=== PATIENT | female | born 2000 | race Caucasian/White ===

== ENCOUNTER 2019-06-29 15:47 | Emergency (ER) | payer OTHER ==
[~2019-06-29] VITALS: Ht 167.7 cm; Wt 64.8 kg
[~2019-06-29 15:47] MED LIST: CYCL10TA9 PO
--- NOTE | 2019-06-29 16:08 | ED Pediatric Illness ---
HPI-Pediatric Illness General Chief Complaint: Exposure Stated Complaint: POSS MOLD EXPOSURE/NAUSEA/HEADACHES Nursing Triage Note: Ambulated to triage. States that she needs to have documentation of mold exposure from her apartment. States that someone else in the apartment building has a child who had a seizure after finding black mold in apartment. Landlord refuses to acknowledge mold. C/O nausea daily with vomiting every morning. Unable to eat times 2 weeks. Tired. A few weeks ago had a tightness in her throat after coming in to apartment Source: patient Exam Limitations: no limitations History of Present Illness Date Seen by Provider: Jun 29, 2019 Time Seen by Provider: 16:06 Initial Comments to ER with headaches nausea for about a month, hasn't been able to eat anything for 2 weeks. She relates this to black mold exposure in her apartment and states she is just here for documentation purposes. Timing/Duration: 4-6 hours Severity: moderate Presenting Symptoms: vomiting, headache Allergies and Home Medications Allergies Coded Allergies: No Known Drug Allergies (Unverified , 06/03/18) Home Medications Cyclobenzaprine HCl 10 Mg Tablet, 10 MG PO Q8H PRN for SPASMS Prescribed by: SKYLAR LEES on 06/03/182022 Patient Home Medication List Home Medication List Reviewed: Yes Review of Systems Review of Systems Constitutional: see HPI EENTM: see HPI Respiratory: no symptoms reported Cardiovascular: no symptoms reported Genitourinary: no symptoms reported LMP: May 28, 2019 Musculoskeletal: no symptoms reported Skin: no symptoms reported Psychiatric/Neurological: Headache Endocrine: No Symptoms Reported PMH-Pediatrics Recent Foreign Travel: No Contact w/other who traveled: No Recent Infectious Disease Expo: No Seasonal Allergies: No Musculoskeletal Disorders: Back Injury Physical Exam-Pediatric Physical Exam Vital Signs - First Documented 06/29/19 15:49 Temp 36.6 Pulse 64 Resp 16 B/P (MAP) 130/71 Capillary Refill : Height, Weight, BMI Height: '" Weight: lbs. oz. kg; 23.00 BMI Method: General Appearance: no acute distress, see HPI, active HENT: head inspection normal, fontanelle closed/normal, PERRL, TMs normal Neck: non-tender, full range of motion Respiratory: lungs clear, normal breath sounds, no respiratory distress, no accessory muscle use Cardiovascular: regular rate, rhythm, no murmur Gastrointestinal: normal bowel sounds, non tender, soft Extremities: normal range of motion, non-tender Neurologic/Psychiatric: alert, normal mood/affect, oriented x 3 Skin: normal color, warm/dry Progress/Results/Core Measures Results/Orders Lab Results Laboratory Tests Test 06/29/19 16:13 06/29/19 16:52 Range/Units White Blood Count 8.8 4.3-11.0 10^3/uL Red Blood Count 4.58 4.35-5.85 10^6/uL Hemoglobin 13.8 11.5-16.0 G/DL Hematocrit 40 35-52 % Mean Corpuscular Volume 88 80-99 FL Mean Corpuscular Hemoglobin 30 25-34 PG Mean Corpuscular Hemoglobin Concent 34 32-36 G/DL Red Cell Distribution Width 13.1 10.0-14.5 % Platelet Count 277 130-400 10^3/uL Mean Platelet Volume 10.1 7.4-10.4 FL Neutrophils (%) (Auto) 69 42-75 % Lymphocytes (%) (Auto) 19 12-44 % Monocytes (%) (Auto) 10 0-12 % Eosinophils (%) (Auto) 2 0-10 % Basophils (%) (Auto) 0 0-10 % Neutrophils # (Auto) 6.1 1.8-7.8 X 10^3 Lymphocytes # (Auto) 1.6 1.0-4.0 X 10^3 Monocytes # (Auto) 0.8 0.0-1.0 X 10^3 Eosinophils # (Auto) 0.2 0.0-0.3 10^3/uL Basophils # (Auto) 0.0 0.0-0.1 10^3/uL Sodium Level 140 135-145 MMOL/L Potassium Level 3.9 3.6-5.0 MMOL/L Chloride Level 108 H 98-107 MMOL/L Carbon Dioxide Level 22 21-32 MMOL/L Anion Gap 10 5-14 MMOL/L Blood Urea Nitrogen 15 7-18 MG/DL Creatinine 0.82 0.60-1.30 MG/DL Estimat Glomerular Filtration Rate > 60 BUN/Creatinine Ratio 18 Glucose Level 131 H 70-105 MG/DL Calcium Level 9.5 8.5-10.1 MG/DL Corrected Calcium 8.5-10.1 MG/DL Total Bilirubin 0.3 0.1-1.0 MG/DL Aspartate Amino Transf (AST/SGOT) 13 5-34 U/L Alanine Aminotransferase (ALT/SGPT) 7 0-55 U/L Alkaline Phosphatase 89 40-136 U/L Total Protein 7.6 6.4-8.2 GM/DL Albumin 4.8 H 3.2-4.5 GM/DL Serum Alcohol < 10 <10 MG/DL Urine Color YELLOW Urine Clarity CLEAR Urine pH 6.5 5-9 Urine Specific [place] 1.015 L 1.016-1.022 Urine Protein 1+ H NEGATIVE Urine Glucose (UA) NEGATIVE NEGATIVE Urine Ketones NEGATIVE NEGATIVE Urine Nitrite NEGATIVE NEGATIVE Urine Bilirubin NEGATIVE NEGATIVE Urine Urobilinogen NORMAL NORMAL MG/DL Urine Leukocyte Esterase 2+ H NEGATIVE Urine RBC (Auto) NEGATIVE NEGATIVE Urine RBC NONE /HPF Urine WBC 5-10 H /HPF Urine Squamous Epithelial Cells 2-5 /HPF Urine Crystals NONE /LPF Urine Bacteria LARGE H /HPF Urine Casts NONE /LPF Urine Hyaline Casts RARE /LPF Urine Mucus SMALL H /LPF Urine Culture Indicated YES My Orders Orders - MORENO FLEMING APRN Alcohol (06/29/19 16:04) Cbc With Automated Diff (06/29/19 16:04) Comprehensive Metabolic Panel (06/29/19 16:04) Ua Culture If Indicated (06/29/19 16:04) Hcg,Qualitative Urine (06/29/19 16:04) Drug Screen Stat (Urine) (06/29/19 16:04) Urine Culture (06/29/19 16:52) Vital Signs/I&O 06/29/19 15:49 Temp 36.6 Pulse 64 Resp 16 B/P (MAP) 130/71 Departure Impression Primary Impression: Urinary tract infection Qualified Codes: N30.00 - Acute cystitis without hematuria Disposition: HOME, SELF-CARE Condition: Stable Departure-Patient Inst. Decision time for Depature: 16:08 Referrals: NO,LOCAL PHYSICIAN (PCP/Family) Primary Care Physician Patient Instructions: Urinary Tract Infection, Adult (DC) Add. Discharge Instructions: 1. Nausea medication as needed 2. Antibiotic as directed 3. Follow-up with your regular doctor for any concerns. Return to ER for any worsening. All discharge instructions reviewed with patient and/or family. Voiced understanding. Scripts Sulfamethoxazole/Trimethoprim (Bactrim Ds Tablet) 1 Each Tablet 1 EACH PO BID, #10 TAB Prov: MORENO FLEMING APRN 06/29/19 Ondansetron (Ondansetron Odt) 4 Mg Tab.rapdis 8 MG PO Q6H PRN for NAUSEA/VOMITING, #8 TAB 0 Refills Prov: MORENO FLEMING APRN 06/29/19 MORENO FLEMING APRN Jun 29, 2019 16:08
[2019-06-29 16:20] LABS: BASOPHILS % (AUTO) 0 % (0-10); EOSINOPHILS # (AUTO) 0.2 10^3/uL (0.0-0.3); EOSINOPHILS % (AUTO) 2 % (0-10); HEMATOCRIT 40 % (35-52); HEMOGLOBIN 13.8 G/DL (11.5-16.0); LYMPHOCYTES # (AUTO) 1.6 X 10^3 (1.0-4.0); LYMPHOCYTES % (AUTO) 19 % (12-44); MEAN CORPUSCULAR HEMOGLOBIN 30 PG (25-34); MEAN CORPUSCULAR HGB CONC 34 G/DL (32-36); MEAN CORPUSCULAR VOLUME 88 FL (80-99); MEAN PLATELET VOLUME 10.1 FL (7.4-10.4); MONOCYTES # (AUTO) 0.8 X 10^3 (0.0-1.0); MONOCYTES % (AUTO) 10 % (0-12); NEUTROPHILS # (AUTO) 6.1 X 10^3 (1.8-7.8); NEUTROPHILS % (AUTO) 69 % (42-75); PLATELET COUNT 277 10^3/uL (130-400); RED CELL DISTRIBUTION WIDTH 13.1 % (10.0-14.5); WHITE BLOOD COUNT 8.8 10^3/uL (4.3-11.0)
[2019-06-29 16:42] LABS: ALANINE AMINOTRANSFERASE 7 U/L (0-55); ALBUMIN 4.8 GM/DL (3.2-4.5); ALKALINE PHOSPHATASE 89 U/L (40-136); BILIRUBIN,TOTAL 0.3 MG/DL (0.1-1.0); BUN/CREATININE RATIO 18; CALCIUM 9.5 MG/DL (8.5-10.1); CARBON DIOXIDE 22 MMOL/L (21-32); CHLORIDE 108 MMOL/L (98-107); CREATININE SERUM 0.82 MG/DL (0.60-1.30); GFR ESTIMATED > 60; GLUCOSE 131 MG/DL (70-105); POTASSIUM 3.9 MMOL/L (3.6-5.0); SODIUM 140 MMOL/L (135-145); TOTAL PROTEIN 7.6 GM/DL (6.4-8.2)
[2019-06-29 17:03] LABS: BILIRUBIN,URINE NEGATIVE (NEGATIVE); CLARITY,URINE CLEAR; COLOR,URINE YELLOW; GLUCOSE, URINE (UA) NEGATIVE (NEGATIVE); KETONES,URINE NEGATIVE (NEGATIVE); LEUKOCYTE ESTERASE ,URINE 2+ (NEGATIVE); NITRITE,URINE NEGATIVE (NEGATIVE); PH,URINE 6.5 (5-9); PROTEIN,URINE 1+ (NEGATIVE); UROBILINOGEN,URINE NORMAL (NORMAL)
[2019-06-29 17:18] LABS: BACTERIA,URINE LARGE /HPF; HYALINE CASTS, URINE RARE /LPF
[2019-06-29 17:23] LABS: AMPHETAMINE SCREEN, URINE NEGATIVE (NEGATIVE); BARBITURATE SCREEN URINE NEGATIVE (NEGATIVE); BENZODIAZEPINES SCREEN URINE NEGATIVE (NEGATIVE); CANNABINOID SCREEN, URINE NEGATIVE (NEGATIVE); COCAINE SCREEN URINE NEGATIVE (NEGATIVE); HCG,QUALITATIVE URINE NEGATIVE (NEGATIVE); METHADONE STAT NEGATIVE (NEGATIVE); METHAMPHETAMINE SCREEN URINE S NEGATIVE (NEGATIVE); OPIATE SCREEN URINE NEGATIVE (NEGATIVE); OXYCODONE STAT NEGATIVE (NEGATIVE); PROPOXYPHENE STAT NEGATIVE (NEGATIVE); TRICYCLIC ANTIDEPRESSANTS SCRE NEGATIVE (NEGATIVE)
[2019-06-29] MEDS ORDERED: ONDA4TAB11 PO (17:23)
[2019-06-29] MEDS ORDERED: SULF1TAB35 PO (17:23)
== END 2019-06-29 17:31 | disposition home or self-care (01) ==
LOC: EDUNIT# 15:47 → ER 15:48
DX: N39.0 Urinary tract infection, site not specified (principal)
CPT/HCPCS: 36415; 80053; 80306; 80320; 81000; 84703; 85025; 87077; 87088; 99282

== ENCOUNTER → 2019-08-04 | Outpatient (CLI) | payer OTHER ==
[~2019-08-04] MED LIST changes: +ONDA4TAB11 PO; +SULF1TAB35 PO
--- NOTE | 2019-08-04 15:55 | Diagnostic Imaging Report ---
INDICATION: Fall with trauma to the head. Headache. Blurred vision. TECHNIQUE: Routine non contrast-enhanced axial images were obtained from the skull base to the vertex. Auto Exposure Controls were utilized during the CT exam to meet ALARA standards for radiation dose reduction COMPARISON: 06/03/2018 FINDINGS: The ventricles and cortical sulci are normal in size and contour. There is no midline shift or mass-effect. No acute intra-axial hemorrhage is seen. There are no abnormal areas of increased or decreased density to suggest acute hemorrhage or edema. No extra-axial masses or collections are present. The bony calvarium is intact. The visualized paranasal sinuses are unremarkable. The mastoid air cells are clear. IMPRESSION: 1. No acute intracranial abnormality. No CT evidence of mass, acute infarct or intracranial hemorrhage. Dictated by: Dictated on workstation # [id number]
== END ==
LOC: RAD 15:20
PROVIDERS: ATTEND Nurse Practitioner Family
DX: S06.0X9A Concussion with loss of consciousness of unspecified duration, initial encounter (principal); G44.309 Post-traumatic headache, unspecified, not intractable; H53.8 Other visual disturbances; W19.XXXA Unspecified fall, initial encounter
CPT/HCPCS: 70450

== ENCOUNTER → 2019-11-01 | Outpatient (CLI) | payer OTHER ==
--- NOTE | 2019-11-01 14:17 | Diagnostic Imaging Report ---
INDICATION: Pain in the left breast. Sonographic interrogation of the area of pain in left breast was performed. This corresponds to the 12-3 o'clock location. No sonographic abnormality is seen. No solid or cystic mass is detected. IMPRESSION: BI-RADS Category 1 No sonographic abnormality is detected. Dictated by: Dictated on workstation # [id number]
== END ==
LOC: RAD 13:05
DX: N63.0 Unspecified lump in unspecified breast (principal)
CPT/HCPCS: 76642

== ENCOUNTER 2020-10-15 20:41 | Emergency (ER) | payer OTHER ==
[~2020-10-15] VITALS: Ht 167.7 cm; Wt 60.0 kg
[2020-10-15 21:30] LABS: BASOPHILS # (AUTO) 0.1 10^3/uL (0.0-0.1); BASOPHILS % (AUTO) 1 % (0-10); EOSINOPHILS # (AUTO) 0.1 10^3/uL (0.0-0.3); EOSINOPHILS % (AUTO) 1 % (0-10); HEMATOCRIT 38 % (35-52); HEMOGLOBIN 13.3 g/dL (11.5-16.0); LYMPHOCYTES # (AUTO) 2.6 10^3/uL (1.0-4.0); LYMPHOCYTES % (AUTO) 29 % (12-44); MEAN CORPUSCULAR HEMOGLOBIN 31 pg (25-34); MEAN CORPUSCULAR HGB CONC 35 g/dL (32-36); MEAN CORPUSCULAR VOLUME 88 fL (80-99); MEAN PLATELET VOLUME 9.7 fL (9.0-12.2); MONOCYTES # (AUTO) 0.7 10^3/uL (0.0-1.0); MONOCYTES % (AUTO) 8 % (0-12); NEUTROPHILS # (AUTO) 5.5 10^3/uL (1.8-7.8); NEUTROPHILS % (AUTO) 61 % (42-75); PLATELET COUNT 276 10^3/uL (130-400); WHITE BLOOD COUNT 8.9 10^3/uL (4.3-11.0)
--- NOTE | 2020-10-15 21:36 | ED Abdominal Pain ---
General Chief Complaint: Abdominal/GI Problems Stated Complaint: LOWER ABD PAIN/NAUSEA Nursing Triage Note: PT AMBULATES TO TRIAGE WITH C/O LOWER R QUADRANT ABD DISCOMFORT ASSOCIATED WITH NAUSEA. REPORTS S/S BEGEAN ON 10/14/19 ET HAVE BEEN INTERMITTENT SINCE. REPORTS DISCOMFORT WORSENS UPON WALKING ET MOVEMENT. DESCRIBES DISCOMFORT "SHARP AND DULL." A&OX4. Sepsis Screen: No Definite Risk Source of Information: Patient Exam Limitations: No Limitations History of Present Illness Date Seen by Provider: Oct 15, 2020 Time Seen by Provider: 21:20 Initial Comments This is a healthy-appearing 20-year-old female who presents to the ER with complaints of right lower quadrant pain and nausea that started around 1999 last night. States her pain had been around 4/10, sharp and constant . However, upon arrival, her pain increased to 10/10 about the same time as her IV start, and she passed out in triage, woke immediately. No prior history of syncope. She believes it was due to the severity of pain. Denies fever, chills, cough, shortness of breath, vomiting, dysuria, discharge, bleeding, or hematuria. LMP apx 2-3 weeks ago. Denies sexual activity or . Daily Vap user, rarely alcohol, and rarely marijuana use. Allergies and Home Medications Allergies Coded Allergies: No Known Drug Allergies (Unverified , 06/03/18) Home Medications Cyclobenzaprine HCl 10 Mg Tablet, 10 MG PO Q8H PRN for SPASMS Prescribed by: SKYLAR LEES on 06/03/182022 Ondansetron 4 Mg Tab.rapdis, 8 MG PO Q6H PRN for NAUSEA/VOMITING Prescribed by: MORENO FLEMING on 06/29/191722 Sulfamethoxazole/Trimethoprim 1 Each Tablet, 1 EACH PO BID Prescribed by: MORENO FLEMING on 06/29/191722 Patient Home Medication List Home Medication List Reviewed: Yes Review of Systems Review of Systems Constitutional: no symptoms reported EENTM: No Symptoms Reported Respiratory: No Symptoms Reported Cardiovascular: No Symptoms Reported Gastrointestinal: See HPI Genitourinary: No Symptoms Reported Musculoskeletal: no symptoms reported Skin: no symptoms reported Psychiatric/Neurological: No Symptoms Reported Endocrine: No Symptoms Reported Hematologic/Lymphatic: No Symptoms Reported Past Ndciald-Klcgie-Azcjim Hx Patient Social History Alcohol Use: Rarely Uses Number of Drinks Today: 0 Alcohol Beverage of Choice: Beer Recreational Drug Use: Yes Drug of Choice: THC Smoking Status: Current Everyday Smoker Type Used: Cigarettes, Electronic/Vapor 2nd Hand Smoke Exposure: No Recent Foreign Travel: No Contact w/Someone Who Travel: No Recent Infectious Disease Expo: No Recent Hopitalizations: No Seasonal Allergies Seasonal Allergies: No Past Medical History Surgeries: No Tonsillectomy Respiratory: No Cardiac: No Neurological: Yes Concussion Gastrointestinal: No Musculoskeletal: Yes Back Injury Cancer: No Psychosocial: No Integumentary: No Physical Exam Vital Signs Vital Signs - First Documented 10/15/20 21:00 Temp 35.5 Pulse 76 Resp 16 B/P (MAP) 147/92 (110) Pulse Ox 100 O2 Delivery Room Air Capillary Refill : Less Than 3 Seconds Height/Weight/BMI Height: '" Weight: lbs. oz. kg; 21.00 BMI Method: General Appearance: WD/WN, no apparent distress HEENT: PERRL/EOMI, normal ENT inspection, pharynx normal Neck: full range of motion, normal inspection Respiratory: lungs clear, normal breath sounds Cardiovascular: regular rate, rhythm, no murmur Gastrointestinal: normal bowel sounds, soft; No rebound; tenderness (RLQ with light palpation ); No mass, No hepatomegaly Extremities: normal range of motion, non-tender, normal inspection, no pedal edema Back: normal inspection, no vertebral tenderness Neurologic/Psychiatric: no motor/sensory deficits, alert, normal mood/affect, oriented x 3 Skin: normal color, warm/dry Progress/Results/Core Measures Results/Orders Lab Results Laboratory Tests Test 10/15/20 21:23 10/15/20 22:45 Range/Units White Blood Count 8.9 4.3-11.0 10^3/uL Red Blood Count 4.32 3.80-5.11 10^6/uL Hemoglobin 13.3 11.5-16.0 g/dL Hematocrit 38 35-52 % Mean Corpuscular Volume 88 80-99 fL Mean Corpuscular Hemoglobin 31 25-34 pg Mean Corpuscular Hemoglobin Concent 35 32-36 g/dL Red Cell Distribution Width 11.8 10.0-14.5 % Platelet Count 276 130-400 10^3/uL Mean Platelet Volume 9.7 9.0-12.2 fL Immature Granulocyte % (Auto) 0 % Neutrophils (%) (Auto) 61 42-75 % Lymphocytes (%) (Auto) 29 12-44 % Monocytes (%) (Auto) 8 0-12 % Eosinophils (%) (Auto) 1 0-10 % Basophils (%) (Auto) 1 0-10 % Neutrophils # (Auto) 5.5 1.8-7.8 10^3/uL Lymphocytes # (Auto) 2.6 1.0-4.0 10^3/uL Monocytes # (Auto) 0.7 0.0-1.0 10^3/uL Eosinophils # (Auto) 0.1 0.0-0.3 10^3/uL Basophils # (Auto) 0.1 0.0-0.1 10^3/uL Immature Granulocyte # (Auto) 0.0 0.0-0.1 10^3/uL Sodium Level 139 135-145 MMOL/L Potassium Level 3.3 L 3.6-5.0 MMOL/L Chloride Level 105 98-107 MMOL/L Carbon Dioxide Level 24 21-32 MMOL/L Anion Gap 10 5-14 MMOL/L Blood Urea Nitrogen 7 7-18 MG/DL Creatinine 0.84 0.60-1.30 MG/DL Estimat Glomerular Filtration Rate > 60 BUN/Creatinine Ratio 8 Glucose Level 83 70-105 MG/DL Calcium Level 9.2 8.5-10.1 MG/DL Corrected Calcium 8.5-10.1 MG/DL Total Bilirubin 0.4 0.1-1.0 MG/DL Aspartate Amino Transf (AST/SGOT) 18 5-34 U/L Alanine Aminotransferase (ALT/SGPT) 14 0-55 U/L Alkaline Phosphatase 75 40-136 U/L Total Protein 7.5 6.4-8.2 GM/DL Albumin 4.7 H 3.2-4.5 GM/DL Serum Test, Qualitative NEGATIVE NEGATIVE Urine Color YELLOW Urine Clarity CLEAR Urine pH 8.5 5-9 Urine Specific [place] <=1.005 1.016-1.022 Urine Protein NEGATIVE NEGATIVE Urine Glucose (UA) NEGATIVE NEGATIVE Urine Ketones NEGATIVE NEGATIVE Urine Nitrite NEGATIVE NEGATIVE Urine Bilirubin NEGATIVE NEGATIVE Urine Urobilinogen 0.2 < = 1.0 MG/DL Urine Leukocyte Esterase NEGATIVE NEGATIVE Urine RBC (Auto) NEGATIVE NEGATIVE Urine RBC NONE /HPF Urine WBC 5-10 H /HPF Urine Squamous Epithelial Cells 2-5 /HPF Urine Crystals NONE /LPF Urine Bacteria FEW H /HPF Urine Casts NONE /LPF Urine Mucus NEGATIVE /LPF Urine Culture Indicated YES My Orders Orders - VALENTIN CRONIN BAG MACHINE TENDER Urine Bedside (10/15/20 21:15) Cbc With Automated Diff (10/15/20 21:15) Comprehensive Metabolic Panel (10/15/20 21:15) Ed Iv/Invasive Line Start (10/15/20 21:15) Ua Culture If Indicated (10/15/20 21:15) Hcg,Qualitative Serum (10/15/20 21:34) Ketorolac Injection (Toradol Injection) (10/15/20 21:45) Ondansetron Injection (Zofran Injectio (10/15/20 21:45) Ct Abd/Pelv W (Appendicitis) (10/15/20 21:36) Iohexol Injection (Omnipaque 350 Mg/Ml 1 (10/15/20 22:45) Received Contrast (Hold Metformin- Contr (10/15/20 22:45) Ns (Ivpb) (Sodium Chloride 0.9% Ivpb Bag (10/15/20 22:45) Urine Culture (10/15/20 22:45) Medications Given in ED Vital Signs/I&O 10/15/20 10/15/20 21:00 23:28 Temp 35.5 36.0 Pulse 76 60 Resp 16 17 B/P (MAP) 147/92 (110) 127/76 (110) Pulse Ox 100 99 O2 Delivery Room Air Room Air Blood Pressure Mean: 110 Progress Progress Note : Progress Note Examined and is stable. Ordered Toradol 15mg IVP and Zofran 4mg IVP for pain and nausea. Basic labs, preg, and CT abd/pelvis ordered. Will monitor. CT abd/pelvis ordered which shows 3.3cm partial ruptured right ovarian cyst, with evidence no appendicitis. Pain controlled at a 2/10 and she is resting comfortably which is reassuring and makes ovarian torsion unlikely. Increased pain was likely d/t cyst rupturing. Reviewed POC and she is agreeable with plan. Diagnostic Imaging Diagonstic Imaging: CT Plain Films/CT/US/NM/MRI: abdomen, pelvis Comments NAME: HEBER GARZA MED REC#: [id number] PT STATUS: DEP ER : 1999 PHYSICIAN: VALENTIN CRONIN BAG MACHINE TENDER ADMIT DATE: 10/15/20/ER Signed Date of Exam:10/15/20 CT ABD/PELV W (APPENDICITIS) PROCEDURE: CT abdomen and pelvis with contrast, rule out appendicitis. TECHNIQUE: Multiple contiguous axial images were obtained through the abdomen and pelvis after the administration of intravenous contrast. All CT scans use one or more of the following dose optimizing techniques: automated exposure control, MA and/or KvP adjustment based on patient size and exam type or iterative reconstruction. INDICATION: Right lower quadrant pain. FINDINGS: There is a right ovarian cyst measuring 3.3 x 2.9 cm. There is a wopqi-tu-efthmaow amount of right adnexal and cul-de-sac pelvic free fluid with partial cystic rupture suggested. The left adnexa and ovary appear normal. There is no appendicitis or diverticulitis. The urinary tracts are unobstructed, nonfocal, and nonacute. The liver, gallbladder, bile ducts, spleen, adrenals, and pancreas are all negative. The aorta is nonaneurysmal and patent. No pneumatosis. No free air. The urinary bladder is normal. IMPRESSION: 1. No evidence of appendicitis or urinary tract obstruction. 2. Likely at least partially ruptured right adnexal ovarian cyst measuring 3.3 cm with small to moderate adjacent pelvic free fluid. Dictated by: Dictated on workstation # [id number] Dict: 10/16/20 0942 Trans: 10/16/20 1108 [id number] Interpreted by: SUZETTE LYNCH Electronically signed by: SUZETTE LYNCH 10/16/20 1108 Departure Impression Primary Impression: Rupture of cyst of right ovary Disposition: HOME, SELF-CARE Condition: Improved Departure-Patient Inst. Decision time for Depature: 23:20 Referrals: NO,LOCAL PHYSICIAN (PCP/Family) Primary Care Physician Patient Instructions: Ovarian Cyst ED Add. Discharge Instructions: Plan: 1. Discharge home. May use heating pad 20 minutes at a time as needed for pain. 2. May take Tylenol or Ibuprofen as needed for pain per package instructions. 3. Follow up with your primary care provider if your symptoms persist. 4. Return for any new or concerning symptoms. All discharge instructions reviewed with patient and/or family. Voiced und erstanding. VALENTIN CRONIN BAG MACHINE TENDER Oct 15, 2020 21:36
[2020-10-15 21:42] LABS: ALBUMIN 4.7 GM/DL (3.2-4.5); CHLORIDE 105 MMOL/L (98-107); POTASSIUM 3.3 MMOL/L (3.6-5.0); SODIUM 139 MMOL/L (135-145)
[2020-10-15 21:43] LABS: CALCIUM 9.2 MG/DL (8.5-10.1)
[2020-10-15 21:44] LABS: GLUCOSE 83 MG/DL (70-105)
[2020-10-15 21:45] LABS: TOTAL PROTEIN 7.5 GM/DL (6.4-8.2)
[2020-10-15] MEDS ORDERED: KETOROLAC 30 MG/ML VIAL IVP ONE (21:45)
[2020-10-15] MEDS ORDERED: ONDANSETRON 4 MG/2 ML (SDV) Z0FRAN IVP ONE (21:45)
[2020-10-15 21:46] LABS: BILIRUBIN,TOTAL 0.4 MG/DL (0.1-1.0); CARBON DIOXIDE 24 MMOL/L (21-32)
[2020-10-15 21:48] LABS: ALKALINE PHOSPHATASE 75 U/L (40-136); CREATININE SERUM 0.84 MG/DL (0.60-1.30); GFR ESTIMATED > 60
[2020-10-15 21:49] LABS: BUN/CREATININE RATIO 8
[2020-10-15 21:51] LABS: ALANINE AMINOTRANSFERASE 14 U/L (0-55)
[2020-10-15] MEDS ORDERED: NS 100 ML (IVPB) BAG IV ONE (22:45)
[2020-10-15] MEDS ORDERED: IOHEXOL 350 MG/ML 100 ML (OMNIPAQUE 350) VIAL IV ONE (22:45)
[2020-10-15] MEDS ORDERED: HOLD METFORMIN - RECEIVED CONTRAST 20 ML VIAL IV SCH (22:45)
[2020-10-15 22:59] LABS: BILIRUBIN,URINE NEGATIVE (NEGATIVE); CLARITY,URINE CLEAR; COLOR,URINE YELLOW; GLUCOSE, URINE (UA) NEGATIVE (NEGATIVE); KETONES,URINE NEGATIVE (NEGATIVE); LEUKOCYTE ESTERASE ,URINE NEGATIVE (NEGATIVE); NITRITE,URINE NEGATIVE (NEGATIVE); PH,URINE 8.5 (5-9); PROTEIN,URINE NEGATIVE (NEGATIVE)
[2020-10-15 23:20] LABS: BACTERIA,URINE FEW /HPF
[2020-10-15 23:28] VITALS: BP 127/76
--- NOTE | 2020-10-16 09:45 | Diagnostic Imaging Report ---
PROCEDURE: CT abdomen and pelvis with contrast, rule out appendicitis. TECHNIQUE: Multiple contiguous axial images were obtained through the abdomen and pelvis after the administration of intravenous contrast. All CT scans use one or more of the following dose optimizing techniques: automated exposure control, MA and/or KvP adjustment based on patient size and exam type or iterative reconstruction. INDICATION: Right lower quadrant pain. FINDINGS: There is a right ovarian cyst measuring 3.3 x 2.9 cm. There is a extqp-oj-srtvvhbv amount of right adnexal and cul-de-sac pelvic free fluid with partial cystic rupture suggested. The left adnexa and ovary appear normal. There is no appendicitis or diverticulitis. The urinary tracts are unobstructed, nonfocal, and nonacute. The liver, gallbladder, bile ducts, spleen, adrenals, and pancreas are all negative. The aorta is nonaneurysmal and patent. No pneumatosis. No free air. The urinary bladder is normal. IMPRESSION: 1. No evidence of appendicitis or urinary tract obstruction. 2. Likely at least partially ruptured right adnexal ovarian cyst measuring 3.3 cm with small to moderate adjacent pelvic free fluid. Dictated by: Dictated on workstation # [id number]
== END 2020-10-15 23:29 | disposition home or self-care (01) ==
LOC: EDUNIT# 20:41 → ER 20:43
DX: N83.291 Other ovarian cyst, right side (principal); F17.210 Nicotine dependence, cigarettes, uncomplicated; F17.290 Nicotine dependence, other tobacco product, uncomplicated; Z32.02 Encounter for pregnancy test, result negative
CPT/HCPCS: 36415; 74177; 80053; 81000; 84703; 85025; 87088